=== PATIENT | male | born 1985 | race Caucasian/White ===

== ENCOUNTER 2018-09-20 05:34 | Day surgery (SDC) | payer OTHER ==
[~2018-09-20] VITALS: Ht 175.3 cm; Wt 89.8 kg
--- NOTE | ~2018-09-20 | O ---
[facility] [place] [address] OPERATIVE REPORT Name: CORBIN JORDAN Room #: 150-7 [facility].#: [id number] Admission: 09/20/18 Attend Phys: Peyman Escoto MD Discharge: Date of : 89 Report #: [id number] THIS REPORT FOR: //name// CC: FAM unknown Peyman Escoto DATE OF SERVICE: 09/20/2018 PREOPERATIVE DIAGNOSIS: Left calcaneal fracture, intraarticular, displaced. POSTOPERATIVE DIAGNOSIS: Left calcaneal fracture, intraarticular, displaced. PROCEDURE: Left calcaneus fracture open reduction internal fixation. SURGEON: Peyman Escoto M.D. ANESTHESIA: General. ESTIMATED BLOOD LOSS: Minimal. DRAINS: None. TOURNIQUET TIME: One hour. DESCRIPTION OF PROCEDURE: The patient brought to the operating room where he was placed under general anesthesia. Once under adequate general anesthesia, he was placed into a lazy lateral position. His left lower extremity was then prepped and draped in sterile manner. Extremity was elevated, exsanguinated, tourniquet placed 300 mmHg. A subtalar incision along the sinus tarsi was then made approximately 4 cm in length. This was dissected down through the soft tissue to the subtalar joint and the fracture site. A laminar transition advisor was used to distract the joint while the lateral wall fracture fragment was elevated and subsequently reduced with a bone tamp and provisionally held with a K-wire. The anterior fracture as well was provisionally held with a K-wire and subsequent fixation across the fracture was then achieved utilizing the Synthes small calcaneal plate with multiple fixation points both proximal and distal to the angle of Gissane. Once complete, excellent fixation and alignment was achieved. This was verified under fluoroscopy to be the case. Once complete, the wound was irrigated copiously and closed with 2-0 Vicryl in the deep and subcutaneous tissues and lauro used for the skin. The wounds were dressed with Xeroform, 4 x 4s, and sterile soft compressive dressing was placed. Tourniquet was let down approximately 1 hour. Toes were pink and warm with good capillary refill. [facility] [address] [place] [address] OPERATIVE REPORT Name: CORBIN JORDAN Room #: 150-7 [facility]..#: [id number] Admission: 09/20/18 Attend Phys: Peyman Escoto MD Discharge: Date of : 89 Report #: [id number] There were no complications from the procedure. The patient tolerated procedure well and went to recovery room without incident. By: [id number] Peyman Escoto MD /nt
[~2018-09-20 05:34] MED LIST: FISH OIL 1,001000 M2 PO; PERCOCET 7.5-31 EACH PO; VICODIN 5-3001 EACH PO; VITAMIN B-1100 M1 PO; VITAMIN B-6100 MG PO; VITAMIN B122500 MCG PO
[2018-09-20 12:09] VITALS: BP 131/82
[2018-09-20] MEDS ORDERED: PERCOCET 7.5-31 EACH PO (13:16)
[2018-09-20] MEDS ORDERED: ASA5UEC PO (13:16)
[2018-09-20 14:05] VITALS: BP 131/82
== END 2018-09-20 14:30 | disposition home or self-care (01) ==
LOC: OR 05:34 → TBA 05:34 → OR 08:00
DX: S92.062A Displaced intraarticular fracture of left calcaneus, initial encounter for closed fracture (principal); F32.9 Major depressive disorder, single episode, unspecified; F41.9 Anxiety disorder, unspecified; F17.210 Nicotine dependence, cigarettes, uncomplicated; Z98.890 Other specified postprocedural states; Z79.899 Other long term (current) drug therapy; Z79.82 Long term (current) use of aspirin; Z79.891 Long term (current) use of opiate analgesic; Z87.19 Personal history of other diseases of the digestive system; X58.XXXA Exposure to other specified factors, initial encounter; Y93.39 Activity, other involving climbing, rappelling and jumping off; Y92.89 Other specified places as the place of occurrence of the external cause; Y99.8 Other external cause status
CPT/HCPCS: 50010; 50101; 50386; 51291; 51412; 55430; 56524; 57091; 62110; 62900; 64039; 70005